=== PATIENT | female | born 1955 | race Caucasian/White ===

== ENCOUNTER 2024-01-01 10:41 | Emergency (ER) | payer MEDICARE, SELFPAY ==
[2024-01-01 10:43] VITALS: BP 119/69; PULSE 99; RESP 18; TEMP 37.1; O2SAT 96; BMI 37.9
--- NOTE | 2024-01-01 10:53 | XR_ITS ---
WS: [id number] Portable AP upright chest, 01/01/2024 Clinical Data: weakness Comparison: None. Findings: No nodules, masses or effusions are seen. The heart is normal. The pulmonary vascularity is not increased. No pneumonia or pneumothorax is seen. The aortic arch and descending thoracic aorta s how tortuosity. There are right upper quadrant cholecystectomy clips. There are surgical clips overly ing the medial aspect of the left upper quadrant. XR/XR chest 1V portable [id number] Impression: Atherosclerosis.
[2024-01-01 11:17] LABS: Hematocrit 45.3 % (36-47); Mean Corpuscular HGB Conc 32.9 g/dL (30-55); Mean Corpuscular Hemoglobin 29.1 pg (27-33); Mean Corpuscular Volume 88.5 fl (85-98); Mean Platelet Volume 9.5 fL (7.4-10.4); Platelet Count 82 10^3/cmm (157-399); Red Blood Count 5.12 10^6/uL (3.85-5.65); Red Cell Distribution Width 13.3 % (12.1-15.1); White Blood Count 1.93 10^3/uL (3.29-11.43)
[2024-01-01 11:25] LABS: INR 1.09 (0.8-1.2)
[2024-01-01 11:40] LABS: Alanine Aminotransferase 53 U/L (0-33); Albumin Level 3.9 g/dL (3.5-5.2); Alkaline Phosphatase 109 U/L (35-105); Anion Gap 13.1 (5-19); Aspartate Amino Transferase 60 U/L (0-32); Blood Urea Nitrogen 13 mg/dL (8-23); Calcium 9.4 mg/dL (8.5-10.5); Carbon Dioxide 28 mmol/L (22-29); Chloride 98 mmol/L (98-107); Creatinine Clr Calc Pharmacy 83.1062; Globulin 3.5 g/dL (1.3-4.6); Glomerular Filtration Rate 71.3 mL/min (90-130); Glucose 102 mg/dL (65-115); Osmolality Calculated 280 mOsm/kg (285-295); Potassium 4.1 mmol/L (3.5-5.1); Sodium 135 mmol/L (136-145); Thyroid Stimulating Hormone 0.28 uIU/mL (0.27-4.20); Total Bilirubin 1.8 mg/dL (0.15-1.2); Total Protein 7.4 g/dL (6.6-8.7)
[2024-01-01 12:18] LABS: Slide Review Slide Review Perform
[2024-01-01 12:24] LABS: Absolute Neutrophil 1.4 10^3/cmm (1.4-6.5); Absolute Segmented Neutrophil 0.8 10/cmm (1.6-7.1); Band Neutrophils Absolute 0.6 10^3/cmm (0.0-1.2); Eosinophils 0 %; Lymphocytes 11 %; Lymphocytes Absolute 0.3 10^3/cmm (1.2-3.4); Monocytes Absolute 0.2 10^3/cmm (0.1-0.6); Platelet Estimate Decreased (Normal); Segmented Neutrophils 44 %; Total Cells Counted 100 (0-100)
--- NOTE | 2024-01-01 13:15 | ECG_ITS ---
[facility] Test Date: 2024-01-01 Pat Name: Edwardo Kwon Department: Room: Gender: Female Mailing Manager: : 1955 Requested By: Romeo Diaz Order Number: [id number] Anum MD: César Cantu M.D. Measurements Intervals [place] Rate: 73 P: 24 VT: 155 QRS: -5 QRSD: 106 T: 18 QT: 343 QTc: 378 Interpretive Statements SINUS RHYTHM MODERATE VOLTAGE CRITERIA FOR LVH, CONSIDER NORMAL VARIANT [MEETS CRITERIA IN ONE OF: R(aVL), S(V1), R(V5), R(V5/V6)+S(V1)] POSSIBLE ANTERIOR MYOCARDIAL INFARCTION , PROBABLY OLD [30 ms Q WAVE IN V3/V4, OR R < 0.2 mV IN V4] No previous ECG available for comparison Electronically Signed On 01-01-2024 14:48:21 CDT by César Cantu M.D. [id number]
[2024-01-01 14:19] LABS: SARS Covid-2 Antigen negative (Negative)
[2024-01-01 14:20] LABS: Add Urine Microscopic? YES; Bilirubin Urine 1+ (Negative); Blood Urine 3+ (Negative); Glucose Urine UA Norm (Normal); Ketones Urine 1+ (Negative); Leukocyte Esterase Urine Trace (Negative); Nitrate Urine Negative (Negative); Protein Urine 1+ (Negative); Urine Appearance Clear (CLEAR); Urine Color Dark Yellow (Yellow); Urobilinogen Urine 8 mg/dL (Negative); pH Urine 5 (5-7)
[2024-01-01 14:21] LABS: Add Urine Culture? No; Amorphous Sediment Urine 1+ /hpf; Mucus Urine 3+ /hpf; RBC Urine 0-4 /hpf (0-2)
--- NOTE | 2024-01-01 15:00 | ED_ITS ---
HPI - Weakness 2 General: Chief complaint: Weakness Stated complaint: body aches, fever, nausea, headache Time Seen by Provider: 01/01/24 13:15 Source: patient and family Mode of arrival: ambulatory Limitations: no limitations History of Present Illness: Patient with weakness generalized weakness. Fell thursday and hurt her right arm and face. Was not examined in ED. Thursday she felt normal and fine. Thursday she started feeling week all over. Complains of diffuse bodyaches. No known fever possibly some chills. No cough. Does report some foul-smelling dark- colored her urine no dysuria. No belly pain. Does have bit of a headache. MD Complaint: generalized weakness and lack of energy Onset (ago): day(s) (4) Duration: constant Location: generalized Severity: moderate Associated symptoms: Reports chills and myalgias Review of Systems 2 General: Reports: 10 or more systems reviewed and unremarkable except in HPI and below Const: Reports: chills Physical Exam 2 Const: COMMON NORMALS: no acute distress, average body habitus, patient oriented x3, healthy appearing, alert and well nourished GENERAL APPEARANCE: well kempt and well developed HENMT: COMMON NORMALS: normocephalic, atraumatic, external ears normal and moist oral mucous membranes HEAD & SCALP: normocephalic and atraumatic E XTERNAL EAR: Yes external ears normal Eye: COMMON NORMALS: Equal, round and reactive pupils present, EOMs intact bilaterally and conjunctivae normal CONJUNCTIVA: Yes conjunctivae normal P UPIL: Yes Equal, round and reactive pupils present Neck/C-Spine: COMMON NORMALS: full ROM, no lymphadenopathy and supple Chest: CHEST: Yes Symmetrical chest wall rise and No Surgical scars present (Chest) Resp: COMMON NORMALS: normal respiratory effort, No retractions, No use of accessory muscles and clear to auscultation bilaterally AUSCULTATION: clear to auscultation bilaterally Cardio: COMMON NORMALS: regular rate, regular rhythm, S1 normal heart sound present, S2 normal heart sound present, No gallops present (Cardio), No clicks present (Cardio), No murmurs present (Cardio) and No rub (Cardio) RATE: r egular rate RHYTHM: regular rhythm HEART SOUNDS: S1 normal heart sound present, S2 normal heart sound present and no murmurs PERIPHERAL PULSES: o ther (Radial pulses 2+ and symmetric) GI: COMMON NORMALS: Soft to palpation, non-tender and no masses INSPECTION: No abdominal distension PALPATION: Yes Soft to palpation, No Guarding due to palpation present (GI) and No Rebound tenderness present : COMMON NORMALS: Yes no CVA tenderness BLADDER/KIDNEY EXAM: Yes no CVA tenderness Back/Pelvis: COMMON NORMALS: no CVA tenderness Extremity: COMMON NORMALS: normal to inspection, full ROM, capillary refill normal and no clubbing, cyanosis or edema Neuro: COMMON NORMALS: patient oriented x3 SENSORIUM/ORIENTATION: Yes alert Psych: APPEARANCE: Yes well kempt Skin: COMMON NORMALS: no rashes or lesions noted, no wounds, turgor normal and no jaundice GENERAL SKIN EXAM: no rashes or lesions noted and turgor normal Course 2 ED course: Multiple reevaluations on patient throughout her stay. Doing okay resting in bed. Tick panel still pending she has UTI likely culture will be sent. Patient will be placed on Doxy given that she might also have tickborne illness and Doxy would be the treatment for this. Vital Signs: Vital signs: Vital Signs Temperature 98.7 F 01/01/24 10:43 Pulse Rate 99 01/01/24 10:43 Respiratory Rate 18 01/01/24 10:43 Blood Pressure 119/69 01/01/24 10:43 Pulse Oximetry 96 01/01/24 10:43 Oxygen Delivery Me thod Room Air 01/01/24 10:43 MDM - Weakness Medical Decision Making Patient thoroughly evaluated does have a mild leukopenia and low platelets however no main anemia. COVID test was negative. Urine does show some signs of infection. Electrolytes are wholly unremarkable. Will treat her for UTI, take panel pending. Will go ahead and use Doxy to broadly cover the tick related infections as well. Patient advised to follow-up with PCP within 2 weeks. Chest x-ray personally reviewed notes no acute malady, EKG also unremarkable. EKG sinus rate [address] elevation no prolonged intervals. Differential Diagnosis Likely anemia, hypoglycemia, hypothyroidism and dehydration Medical Records I reviewed the patient's medical records. Lab Data I reviewed the patient's lab results. 01/01/24 11:06 01/01/24 11:06 Radiology Impressions Chest X-Ray 01/01/24 10:53 Impression: Atherosclerosis. Laboratory Results WBC 1.93 10^3/uL (3.29-11.43) L 01/01/24 11:06 RBC 5.12 10^6/uL (3.85-5.65) 01/01/24 11:06 Hgb 14.90 g/dL (11.27-16.99) 01/01/24 11:06 Hct 45.3 % (36-47) 01/01/24 11:06 MCV 88.5 fl (85-98) 01/01/24 11:06 MCH 29.1 pg (27-33) 01/01/24 11:06 MCHC 32.9 g/dL (30-55) 01/01/24 11:06 RDW 13.3 % (12.1-15.1) 01/01/24 11:06 Plt Count 82 10^3/cmm (157-399) L 01/01/24 11:06 MPV 9.5 fL (7.4-10.4) 01/01/24 11:06 Lymph % (Auto) Not Reportable 01/01/24 11:06 [place] % (Auto) Not Reportable 01/01/24 11:06 Lymph # (Auto) Not Reportable 01/01/24 11:06 [place] # (Auto) Not Reportable 01/01/24 11:06 Total Counted 100 (0-100) 01/01/24 11:06 Atypical Lymphs % 6.0 % (0-5) H 01/01/24 11:06 Absolute Neutrophils 1.4 10^3/cmm (1.4-6.5) 01/01/24 11:06 Segmented Neutrophils 44 % 01/01/24 11:06 Abs Segm Neuts (Man) 0.8 10/cmm (1.6-7.1) L 01/01/24 11:06 Band Neutrophils 31.0 % 01/01/24 11:06 Abs Band Neuts (Man) 0.6 10^3/cmm (0.0-1.2) 01/01/24 11:06 Absolute Lymphocytes 0.3 10^3/cmm (1.2-3.4) L 01/01/24 11:06 Lymphocytes (Manual) 11 % 01/01/24 11:06 Monocytes (Manual) 8.0 % 01/01/24 11:06 Absolute Monocytes 0.2 10^3/cmm (0.1-0.6) 01/01/24 11:06 Eosinophils (Manual) 0 % 01/01/24 11:06 Absolute Eosinophils 0.0 10^3/cmm (0.0-0.7) 01/01/24 11:06 Basophils (Manual) 0.0 % 01/01/24 11:06 Absolute Basophils 0.0 10^3/cmm (0.0-0.2) 01/01/24 11:06 Platelet Estimate Decreased (Normal) L 01/01/24 11:06 PT 14.40 SECONDS (12.1-14.9) 01/01/24 11:06 INR 1.09 (0.8-1.2) 01/01/24 11:06 Sodium 135 mmol/L (136-145) L 01/01/24 11:06 Potassium 4.1 mmol/L (3.5-5.1) 01/01/24 11:06 Chloride 98 mmol/L (98-107) 01/01/24 11:06 Carbon Dioxide 28 mmol/L (22-29) 01/01/24 11:06 Anion Gap 13.1 (5-19) 01/01/24 11:06 BUN 13 mg/dL (8-23) 01/01/24 11:06 Creatinine 0.8 mg/dL (0.5-0.9) 01/01/24 11:06 GFR Calculation 71.3 mL/min (90-130) L 01/01/24 11:06 Glucose 102 mg/dL (65-115) 01/01/24 11:06 Calculated Osmolality 280 mOsm/kg (285-295) L 01/01/24 11:06 Calcium 9.4 mg/dL (8.5-10.5) 01/01/24 11:06 Total Bilirubin 1.8 mg/dL (0.15-1.2) H 01/01/24 11:06 AST 60 U/L (0-32) H 01/01/24 11:06 ALT 53 U/L (0-33) H 01/01/24 11:06 Alkaline Phosphatase 109 U/L (35-105) H 01/01/24 11:06 Total Protein 7.4 g/dL (6.6-8.7) 01/01/24 11:06 Albumin 3.9 g/dL (3.5-5.2) 01/01/24 11:06 Globulin 3.5 g/dL (1.3-4.6) 01/01/24 11:06 TSH 0.28 uIU/mL (0.27-4.20) 01/01/24 11:06 Urine Color Dark yellow (Yellow) 01/01/24 13:51 Urine Appearance Clear (CLEAR) 01/01/24 13:51 Urine pH 5 (5-7) 01/01/24 13:51 Ur Specific [place] 1.020 (1.005-1.030) 01/01/24 13:51 Urine Protein 1+ (Negative) H 01/01/24 13:51 Urine Glucose (UA) Norm (Normal) 01/01/24 13:51 Urine Ketones 1+ (Negative) H 01/01/24 13:51 Urine Blood 3+ (Negative) H 01/01/24 13:51 Urine Nitrate Negative (Negative) 01/01/24 13:51 Urine Bilirubin 1+ (Negative) H 01/01/24 13:51 Urine Urobilinogen 8 mg/dL (Negative) H 01/01/24 13:51 Ur Leukocyte Esterase Trace (Negative) H 01/01/24 13:51 Urine RBC 0-4 /hpf (0-2) H 01/01/24 13:51 Urine WBC 5-10 /hpf (0-5) H 01/01/24 13:51 Ur Squamous Epith Cells 5-10 /hpf (0-5) H 01/01/24 13:51 Amorphous Sediment 1+ /hpf 01/01/24 13:51 Urine Bacteria None /hpf (NONE) 01/01/24 13:51 Urine Mucus 3+ /hpf 01/01/24 13:51 SARS-CoV-2 Ag (Rapid) negative (Negative) 01/01/24 13:51 Imaging Data CXR: I personally reviewed and interpreted this imaging study as follows: My impression: No acute findings All radiology interpretation(s) finalized by discharge EKG Data EKG 1: I personally reviewed and interpreted this EKG as follows: (see mdm) Discharge Plan Discharge Patient Disposition: Home Clinical Impression: Acute UTI (urinary tract infection) Condition: Stable Prescriptions: New doxycycline hyclate 100 mg capsule 100 mg PO BID 7 Days Qty: 14 0RF No Action levothyroxine 300 mcg Tablet 300 mcg PO DAILY acetaminophen 500 mg Tablet 1,000 mg PO Q6H PRN (Reason: Pain) sertraline 25 mg Tablet 25 mg PO DAILY Discharge Orders: Discharge ED (Routine); Ordered 01/01/24 Ordered By: Julio Cesar Jacobs Discharge Diet: Usual diet Discharge Activity: Resume usual activity Patient Instructions: Urinary Tract Infection in Women (ED) Coding Level of Care Code ED Production Recovery Operator for Tino Andre
[2024-01-01] MEDS: ketorolac 10 mg Tablet PO (15:12)
[2024-01-01] MEDS: doxycycline 100 mg Tablet PO (15:17)
--- NOTE | 2024-01-01 15:31 | ED_ITS ---
HPI - Weakness 2 General: Chief complaint: Weakness Stated complaint: body aches, fever, nausea, headache Time Seen by Provider: 01/01/24 13:15 Source: patient and family Mode of arrival: ambulatory Limitations: no limitations History of Present Illness: Fell 3 days ago hit her face and arm had some pain but yesterday felt normal then today started feeling bad having bodyaches chills all over. Has daily exposure to ticks. Also has foul-smelling urine. No cough no known fever. MD Complaint: generalized weakness and lack of energy Location: generalized Severity: moderate Review of Systems 2 General: Reports: 10 or more systems reviewed and unremarkable except in HPI and below Physical Exam 2 Const: COMMON NORMALS: no acute distress, average body habitus, patient oriented x3, healthy appearing, alert and well nourished GENERAL APPEARANCE: well kempt and well developed HENMT: COMMON NORMALS: normocephalic, atraumatic, external ears normal and moist oral mucous membranes HEAD & SCALP: normocephalic and atraumatic E XTERNAL EAR: Yes external ears normal Eye: COMMON NORMALS: Equal, round and reactive pupils present, EOMs intact bilaterally and conjunctivae normal CONJUNCTIVA: Yes conjunctivae normal P UPIL: Yes Equal, round and reactive pupils present Neck/C-Spine: COMMON NORMALS: full ROM, no lymphadenopathy and supple Chest: CHEST: Yes Symmetrical chest wall rise and No Surgical scars present (Chest) Resp: COMMON NORMALS: normal respiratory effort, No retractions, No use of accessory muscles and clear to auscultation bilaterally AUSCULTATION: clear to auscultation bilaterally Cardio: COMMON NORMALS: regular rate, regular rhythm, S1 normal heart sound present, S2 normal heart sound present, No gallops present (Cardio), No clicks present (Cardio), No murmurs present (Cardio) and No rub (Cardio) RATE: r egular rate RHYTHM: regular rhythm HEART SOUNDS: S1 normal heart sound present, S2 normal heart sound present and no murmurs PERIPHERAL PULSES: o ther (Radial pulses 2+ and symmetric) GI: COMMON NORMALS: Soft to palpation, non-tender and no masses INSPECTION: No abdominal distension PALPATION: Yes Soft to palpation, No Guarding due to palpation present (GI) and No Rebound tenderness present : COMMON NORMALS: Yes no CVA tenderness BLADDER/KIDNEY EXAM: Yes no CVA tenderness Back/Pelvis: COMMON NORMALS: no CVA tenderness Extremity: COMMON NORMALS: normal to inspection, full ROM, capillary refill normal and no clubbing, cyanosis or edema Neuro: COMMON NORMALS: patient oriented x3 SENSORIUM/ORIENTATION: Yes alert Psych: APPEARANCE: Yes well kempt Skin: COMMON NORMALS: no rashes or lesions noted, no wounds, turgor normal and no jaundice GENERAL SKIN EXAM: no rashes or lesions noted and turgor normal Course 2 Vital Signs: Vital signs: Vital Signs Temperature 98.7 F 01/01/24 15:41 Pulse Rate 91 01/01/24 15:41 Respiratory Rate 16 01/01/24 15:41 Blood Pressure 116/68 01/01/24 15:41 Pulse Oximetry 97 01/01/24 15:41 Oxygen Delivery Me thod Room Air 01/01/24 10:43 MDM - Weakness Medical Decision Making Patient having weakness chills and bodyaches but no fever. Dark-colored urine and foul-smelling urine. Also has tick exposure on a daily basis. Has been does remove them though. No known rashes. Patient labs were unremarkable except for urine which showed possible infection. Tick panel has been sent. Patient was placed on Doxy for the possible UTI as well as coverage for the tickborne illnesses. Differential Diagnosis Likely anemia, sepsis and dehydration Medical Records I reviewed the patient's medical records. Lab Data I reviewed the patient's lab results. 01/01/24 11:06 01/01/24 11:06 Radiology Impressions Chest X-Ray 01/01/24 10:53 Impression: Atherosclerosis. Laboratory Results WBC 1.93 10^3/uL (3.29-11.43) L 01/01/24 11:06 RBC 5.12 10^6/uL (3.85-5.65) 01/01/24 11:06 Hgb 14.90 g/dL (11.27-16.99) 01/01/24 11:06 Hct 45.3 % (36-47) 01/01/24 11:06 MCV 88.5 fl (85-98) 01/01/24 11:06 MCH 29.1 pg (27-33) 01/01/24 11:06 MCHC 32.9 g/dL (30-55) 01/01/24 11:06 RDW 13.3 % (12.1-15.1) 01/01/24 11:06 Plt Count 82 10^3/cmm (157-399) L 01/01/24 11:06 MPV 9.5 fL (7.4-10.4) 01/01/24 11:06 Lymph % (Auto) Not Reportable 01/01/24 11:06 [place] % (Auto) Not Reportable 01/01/24 11:06 Lymph # (Auto) Not Reportable 01/01/24 11:06 [place] # (Auto) Not Reportable 01/01/24 11:06 Total Counted 100 (0-100) 01/01/24 11:06 Atypical Lymphs % 6.0 % (0-5) H 01/01/24 11:06 Absolute Neutrophils 1.4 10^3/cmm (1.4-6.5) 01/01/24 11:06 Segmented Neutrophils 44 % 01/01/24 11:06 Abs Segm Neuts (Man) 0.8 10/cmm (1.6-7.1) L 01/01/24 11:06 Band Neutrophils 31.0 % 01/01/24 11:06 Abs Band Neuts (Man) 0.6 10^3/cmm (0.0-1.2) 01/01/24 11:06 Absolute Lymphocytes 0.3 10^3/cmm (1.2-3.4) L 01/01/24 11:06 Lymphocytes (Manual) 11 % 01/01/24 11:06 Monocytes (Manual) 8.0 % 01/01/24 11:06 Absolute Monocytes 0.2 10^3/cmm (0.1-0.6) 01/01/24 11:06 Eosinophils (Manual) 0 % 01/01/24 11:06 Absolute Eosinophils 0.0 10^3/cmm (0.0-0.7) 01/01/24 11:06 Basophils (Manual) 0.0 % 01/01/24 11:06 Absolute Basophils 0.0 10^3/cmm (0.0-0.2) 01/01/24 11:06 Platelet Estimate Decreased (Normal) L 01/01/24 11:06 PT 14.40 SECONDS (12.1-14.9) 01/01/24 11:06 INR 1.09 (0.8-1.2) 01/01/24 11:06 Sodium 135 mmol/L (136-145) L 01/01/24 11:06 Potassium 4.1 mmol/L (3.5-5.1) 01/01/24 11:06 Chloride 98 mmol/L (98-107) 01/01/24 11:06 Carbon Dioxide 28 mmol/L (22-29) 01/01/24 11:06 Anion Gap 13.1 (5-19) 01/01/24 11:06 BUN 13 mg/dL (8-23) 01/01/24 11:06 Creatinine 0.8 mg/dL (0.5-0.9) 01/01/24 11:06 GFR Calculation 71.3 mL/min (90-130) L 01/01/24 11:06 Glucose 102 mg/dL (65-115) 01/01/24 11:06 Calculated Osmolality 280 mOsm/kg (285-295) L 01/01/24 11:06 Calcium 9.4 mg/dL (8.5-10.5) 01/01/24 11:06 Total Bilirubin 1.8 mg/dL (0.15-1.2) H 01/01/24 11:06 AST 60 U/L (0-32) H 01/01/24 11:06 ALT 53 U/L (0-33) H 01/01/24 11:06 Alkaline Phosphatase 109 U/L (35-105) H 01/01/24 11:06 Total Protein 7.4 g/dL (6.6-8.7) 01/01/24 11:06 Albumin 3.9 g/dL (3.5-5.2) 01/01/24 11:06 Globulin 3.5 g/dL (1.3-4.6) 01/01/24 11:06 TSH 0.28 uIU/mL (0.27-4.20) 01/01/24 11:06 Urine Color Dark yellow (Yellow) 01/01/24 13:51 Urine Appearance Clear (CLEAR) 01/01/24 13:51 Urine pH 5 (5-7) 01/01/24 13:51 Ur Specific [place] 1.020 (1.005-1.030) 01/01/24 13:51 Urine Protein 1+ (Negative) H 01/01/24 13:51 Urine Glucose (UA) Norm (Normal) 01/01/24 13:51 Urine Ketones 1+ (Negative) H 01/01/24 13:51 Urine Blood 3+ (Negative) H 01/01/24 13:51 Urine Nitrate Negative (Negative) 01/01/24 13:51 Urine Bilirubin 1+ (Negative) H 01/01/24 13:51 Urine Urobilinogen 8 mg/dL (Negative) H 01/01/24 13:51 Ur Leukocyte Esterase Trace (Negative) H 01/01/24 13:51 Urine RBC 0-4 /hpf (0-2) H 01/01/24 13:51 Urine WBC 5-10 /hpf (0-5) H 01/01/24 13:51 Ur Squamous Epith Cells 5-10 /hpf (0-5) H 01/01/24 13:51 Amorphous Sediment 1+ /hpf 01/01/24 13:51 Urine Bacteria None /hpf (NONE) 01/01/24 13:51 Urine Mucus 3+ /hpf 01/01/24 13:51 SARS-CoV-2 Ag (Rapid) negative (Negative) 01/01/24 13:51 No radiology studies performed this visit Discharge Plan Discharge Patient Disposition: Home Clinical Impression: Acute UTI (urinary tract infection) Condition: Stable Prescriptions: New doxycycline hyclate 100 mg capsule 100 mg PO BID 7 Days Qty: 14 0RF No Action levothyroxine 300 mcg Tablet 300 mcg PO DAILY acetaminophen 500 mg Tablet 1,000 mg PO Q6H PRN (Reason: Pain) sertraline 25 mg Tablet 25 mg PO DAILY Discharge Orders: Discharge ED (Routine); Ordered 01/01/24 Ordered By: Julio Cesar Jacobs Discharge Diet: Usual diet Discharge Activity: Resume usual activity Patient Instructions: Urinary Tract Infection in Women (ED) Coding Level of Care Code ED Kitchen Lead for Tino Andre
[2024-01-01 15:41] VITALS: BP 116/68; PULSE 91; RESP 16; TEMP 37.1; O2SAT 97
[2024-01-04 16:45] LABS: Lyme AB Screen <0.90 index
[2024-01-05 16:10] LABS: E. Chaffeensis AB IGG <1:64; E. Chaffeensis AB IGM <1:20
[2024-01-06 16:39] LABS: RMSF IGG NOT DETECTED; RMSF IGM NOT DETECTED
== END 2024-01-01 15:42 | disposition home or self-care (01) ==
PROVIDERS: Emergency Medicine; Emergency Provider Emergency Medicine
DX: N39.0 Urinary tract infection, site not specified (principal); Z11.52 Encounter for screening for COVID-19
CPT/HCPCS: 36415; 71045; 80053; 81001; 84443; 85007; 85025; 85610; 86618; 86666; 86757; 87426; 93005; 99285

== ENCOUNTER 2024-04-04 06:00 | Outpatient (CLI) | payer MEDICARE, SELFPAY | END 2024-04-04 06:01 | disposition home or self-care (01) | LOC: RAD 05-01 15:29 | PROVIDERS: Visit Provider Nurse Practitioner Family | DX: E03.9 Hypothyroidism, unspecified (principal); F41.9 Anxiety disorder, unspecified; N39.0 Urinary tract infection, site not specified | CPT/HCPCS: 80053; 80061; 84443; 85025; 87077; 87086; 87184 ==